=== PATIENT | female | born 1970 | race Caucasian/White ===

== ENCOUNTER 2018-12-24 19:59 | Emergency (ER) | payer OTHER ==
[2018-12-24] MEDS ORDERED: LORazepam 2 MG/ML SDV IVPUSH STA (20:00)
[2018-12-24] MEDS ORDERED: Sodium Chloride 0.9% 10 ML Syringe FLUSH PRN (20:10)
[2018-12-24] MEDS ORDERED: LORazepam 2 MG/ML SDV ONE (20:24)
[2018-12-24 20:50] LABS: CHLORIDE,CL 105 mmol/L (98-107); SODIUM,NA 143 mmol/L (136-145)
[2018-12-24] MEDS ORDERED: traMADol 50 MG Tab PO ONE (20:50)
[2018-12-24 20:51] LABS: ANION GAP 14.6 mmol/L (10-20)
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
== END 2018-12-24 22:09 | disposition home or self-care (01) ==
LOC: VM.ED 19:59
DX: S16.1XXA Strain of muscle, fascia and tendon at neck level, initial encounter (principal); S39.012A Strain of muscle, fascia and tendon of lower back, initial encounter; R07.81 Pleurodynia; V49.49XA Driver injured in collision with other motor vehicles in traffic accident, initial encounter
CPT/HCPCS: 36415; 71045; 72020; 80053; 80305; 85025; 85610; 96374; 99285; G0480

== ENCOUNTER 2019-10-15 03:43 | Emergency (ER) | payer MEDICAID ==
--- NOTE | 2019-10-15 04:17 | EDM.PDOC ---
ED HPI GENERAL MEDICAL PROBLEM - General Chief Complaint: Chest Pain Stated Complaint: Chest Pain Time Seen by Provider: 10/15/19 03:50 Source of Information: Reports: Patient History Limitations: Reports: No Limitations - History of Present Illness INITIAL COMMENTS - FREE TEXT/NARRATIVE: Patient presents to ER with complaints of left anterior/axilla chest pain. Admits to pain starting approximately 4-5 hours ago. Feels short of breath. No nausea or diaphoresis. Pain does not radiate. No cardiac history. Does have neuropathy in legs due to history of diabetes. Had gastric bypass and loss a lot of weight so is not treated for diabetes at this time. History of restless leg. Admits to feeling anxious, "has been worked up since Wednesday". Relates family history of cardiac, parents both from cardiac issues. Onset: Today, Gradual Duration: Hour(s):, Constant Location: Reports: Chest Quality: Reports: Ache, Sharp Severity: Moderate Associated Symptoms: Reports: Chest Pain, Shortness of Breath. Denies: Cough, Fever/Chills, Loss of Appetite, Nausea/Vomiting, Syncope, Weakness Treatments B[employer]K [employer]IVER: Reports: Acetaminophen Chest Pain Score (Numeric/FACES): 8 - Related Data Allergies Allergy/AdvReac Type Severity Reaction Status Date / Time ketorolac [From Toradol] Allergy Intermediate Rash Verified 10/15/19 04:24 aspirin Allergy Other Verified 10/15/19 04:24 scopolamine Allergy Rash Verified 10/15/19 04:24 Home Meds: Home Meds Sertraline [Zoloft] 200 mg PO DAILY 10/15/19 [History] buPROPion HCl [Wellbutrin Xl] 150 mg PO DAILY 10/15/19 [History] cloNIDine [Catapres] 0.1 mg PO BEDTIME 10/15/19 [History] Past Medical History Cardiovascular History: Reports: None Neurological History: Reports: Neuropathy, Diabetic Endocrine/Metabolic History: Reports: Diabetes, Type II - Past Surgical History GI Surgical History: Reports: Bariatric Procedure Social & Family History - Tobacco Use Smoking Status *Q: Current Every Day Smoker - Recreational Drug Use Recreational Drug Type: Reports: Methamphetamine ED ROS GENERAL - Review of Systems Review Of Systems: See Below Constitutional: Denies: Fever, Chills, Malaise, Weakness HEENT: Reports: No Symptoms Respiratory: Reports: Shortness of Breath Cardiovascular: Reports: Chest Pain. Denies: Edema, Lightheadedness Endocrine: Denies: Fatigue GI/Abdominal: Denies: Abdominal Pain, Constipation, Diarrhea, Nausea, Vomiting : Reports: No Symptoms Musculoskeletal: Reports: Leg Pain Skin: Reports: No Symptoms Neurological: Reports: Other (restless legs) Psychiatric: Reports: Anxiety ED EXAM, GENERAL - Physical Exam Exam: See Below Exam Limited By: No Limitations General Appearance: Alert, WD/WN, Anxious Ears: Normal External Exam, Normal TMs Nose: Normal Inspection, Normal Mucosa, No Blood Throat/Mouth: Normal Inspection, Normal Oropharynx Head: Normocephalic Neck: Normal Inspection, Supple, Non-Tender Respiratory/Chest: No Respiratory Distress, Lungs Clear, Normal Breath Sounds Cardiovascular: Regular Rate, Rhythm GI/Abdominal: Normal Bowel Sounds, Soft, Non-Tender Extremities: Normal Inspection, No Pedal Edema Neurological: Alert, Oriented Psychiatric: Anxious Skin Exam: Warm, Dry Course - Vital Signs Last Recorded V/S: Last Vital Signs Temp 96.2 F L 10/15/19 04:40 Pulse 81 10/15/19 05:58 Resp 10 L 10/15/19 05:58 BP 109/67 10/15/19 05:58 Pulse Ox 97 10/15/19 05:58 - Orders/Labs/Meds Orders: Active Orders 24 hr Category Date Time Status EKG 12 Lead [EKG Documentation Completion] [RC] STAT Care 10/15/19 06:56 Active Labs: Laboratory Tests 10/15/19 10/15/19 10/15/19 Range/Units 04:29 04:33 04:33 WBC 6.5 (4.0-10.0) x10^3/uL RBC 4.26 (4.00-5.50) x10^6/uL Hgb 12.1 (12.0-16.0) g/dL Hct 37.2 (33.0-47.0) % MCV 87.3 (78.0-93.0) fL MCH 28.4 (26.0-32.0) pg MCHC 32.5 (32.0-36.0) g/dL RDW Coeff of [place]ivid[place] 12.4 (10.0-15.0) % Plt Count 284 (130-400) x10^3/uL Neut % (Auto) 51.0 (50.0-80.0) % Lymph % (Auto) 36.3 (25.0-50.0) % [place] % (Auto) 9.7 (2.0-11.0) % Eos % (Auto) 2.8 (0.0-4.0) % Baso % (Auto) 0.2 (0.2-1.2) % APTT (24.0-36.0) SEC Sodium 144 (136-145) mmol/L Potassium 4.0 (3.5-5.1) mmol/L Chloride 107 (98-107) mmol/L Carbon Dioxide 30 (21-32) mmol/L Anion Gap 11.0 (10-20) mmol/L BUN 28 H (7-18) mg/dL Creatinine 0.7 (0.55-1.02) mg/dL Est Cr Clr Drug Dosing TNP Estimated GFR (MDRD) > 60 Glucose 45 L (74-106) mg/dL Calcium 8.3 L (8.5-10.1) mg/dL Corrected Calcium 8.94 (8.5-10.1) mg/dL Total Bilirubin 0.4 (0.2-1.0) mg/dL AST 26 (15-37) U/L ALT 30 (14-59) U/L Alkaline Phosphatase 172 H (46-116) U/L Lactate Dehydrogenase 243 H (81-234) U/L Creatine Kinase 305 H* (26-192) U/L Troponin I 1.477 H* (<=0.056) ng/mL Total Protein 6.9 (6.4-8.2) g/dL Albumin 3.2 L (3.4-5.0) g/dL Globulin 3.7 Albumin/Globulin Ratio 0.86 Urine Opiates Screen Negative (NEGATIVE) Ur Buprenorphine Scrn Negative (NEGATIVE) Ur Oxycodone Screen Negative (NEGATIVE) Ur EDDP (Meth Metab) Negative (NEGATIVE) Urine Methadone Screen Negative (NEGATIVE) Ur Barbiturates Screen Negative (NEGATIVE) Ur Tricyclics Screen Negative (NEGATIVE) Ur Phencyclidine Scrn Negative (NEGATIVE) Ur Amphetamine Screen Positive H (NEGATIVE) U Methamphetamines Scrn Positive H (NEGATIVE) Urine MDMA Screen Negative (NEGATIVE) U Benzodiazepines Scrn Negative (NEGATIVE) U Cocaine Metab Screen Negative (NEGATIVE) U Marijuana (THC) Screen Negative (NEGATIVE) 10/15/19 Range/Units 04:33 WBC (4.0-10.0) x10^3/uL RBC (4.00-5.50) x10^6/uL Hgb (12.0-16.0) g/dL Hct (33.0-47.0) % MCV (78.0-93.0) fL MCH (26.0-32.0) pg MCHC (32.0-36.0) g/dL RDW Coeff of [place] (10.0-15.0) % Plt Count (130-400) x10^3/uL Neut % (Auto) (50.0-80.0) % Lymph % (Auto) (25.0-50.0) % [place] % (Auto) (2.0-11.0) % Eos % (Auto) (0.0-4.0) % Baso % (Auto) (0.2-1.2) % APTT 23.4 L (24.0-36.0) SEC Sodium (136-145) mmol/L Potassium (3.5-5.1) mmol/L Chloride (98-107) mmol/L Carbon Dioxide (21-32) mmol/L Anion Gap (10-20) mmol/L BUN (7-18) mg/dL Creatinine (0.55-1.02) mg/dL Est Cr Clr Drug Dosing Estimated GFR (MDRD) Glucose (74-106) mg/dL Calcium (8.5-10.1) mg/dL Corrected Calcium (8.5-10.1) mg/dL Total Bilirubin (0.2-1.0) mg/dL AST (15-37) U/L ALT (14-59) U/L Alkaline Phosphatase (46-116) U/L Lactate Dehydrogenase (81-234) U/L Creatine Kinase (26-192) U/L Troponin I (<=0.056) ng/mL Total Protein (6.4-8.2) g/dL Albumin (3.4-5.0) g/dL Globulin Albumin/Globulin Ratio Urine Opiates Screen (NEGATIVE) Ur Buprenorphine Scrn (NEGATIVE) Ur Oxycodone Screen (NEGATIVE) Ur EDDP (Meth Metab) (NEGATIVE) Urine Methadone Screen (NEGATIVE) Ur Barbiturates Screen (NEGATIVE) Ur Tricyclics Screen (NEGATIVE) Ur Phencyclidine Scrn (NEGATIVE) Ur Amphetamine Screen (NEGATIVE) U Methamphetamines Scrn (NEGATIVE) Urine MDMA Screen (NEGATIVE) U Benzodiazepines Scrn (NEGATIVE) U Cocaine Metab Screen (NEGATIVE) U Marijuana (THC) Screen (NEGATIVE) Meds: Medications Discontinued Medications Generic Name Dose Route Start Last Admin Trade Name Freq PRN Reason Stop Dose Admin Aspirin 324 mg 10/15/19 05:34 10/15/19 05:35 Aspirin PO 10/15/19 05:35 324 mg ONETIME ONE Administration Fentanyl 25 mcg 10/15/19 05:56 10/15/19 06:06 Sublimaze IVPUSH 25 mcg Q2H PRN Administration Pain Heparin Sodium (Porcine) 4,000 units 10/15/19 05:43 10/15/19 06:44 Heparin Sodium IVPUSH 10/15/19 05:44 4,000 units .BOLUS ONE Administration Heparin Sodium/Sodium Chloride 25,000 units in 500 mls @ 16 mls/hr 10/15/19 05 :45 10/15/19 06:31 Heparin 25,000 Units In 1/2 Ns 500 Ml IV 800 units/hr TITRATE BETH 16 mls/hr Administration Protocol 800 UNITS/HR Nitroglycerin 0.4 mg 10/15/19 05:34 Nitrostat SL Q5M PRN Chest Pain - Re-Assessments/Exams Free Text/Narrative Re-Assessment/Exam: 10/15/19 05:00 Patient resting more comfortably than on arrival. States "is doing good". Awaiting labs. 0530-Lab results received. Has elevated troponin I at 1.477, CK 305, ALT 172, LDH 243. Discussed with patient. Contacted [facility] and spoke with Dr. Hayes in ER, report given. Agreed to accept the patient in transfer. Patient informed 10/15/19 05:54 Received call back from [facility]. Recommend proceeding with Heparin drip. Did call [id number] per patient request to notify them of her transfer. 10/15/19 06:18 Fentanyl given for pain. EMS here. Departure - Departure Time of Disposition: 05:37 Disposition: DC/Tfer to Acute Hospital 02 Reason for Transfer *Q: Other (further testing required) Condition: Poor, Undetermined Clinical Impression: Acute myocardial infarction Referrals: Orville Rice NP [Primary Care Provider] - Forms: ED Department Discharge, Interfacility Transfer EMTALA Sepsis Event Note - Focused Exam Vital Signs: Vital Signs Temp Pulse Resp BP Pulse Ox 10/15/19 05:58 81 10 L 109/67 97 10/15/19 05:53 80 13 104/63 98 10/15/19 05:45 94 12 131/71 97 10/15/19 05:42 94 15 109/57 L 98 10/15/19 04:40 96.2 F L 94 14 131/87 98 Date Exam was Performed: 10/15/19 Time Exam was Performed: 13:15 - My Orders Last 24 Hours: My Active Orders 10/15/19 06:56 EKG 12 Lead [EKG Documentation Completion] [RC] STAT - Assessment/Plan Last 24 Hours: My Active Orders 10/15/19 06:56 EKG 12 Lead [EKG Documentation Completion] [RC] STAT
[2019-10-15 04:50] LABS: BARBITURATE SCREEN,URINE NEGATIVE (NEGATIVE); BENZODIAZEPINES SCREEN,URINE NEGATIVE (NEGATIVE); EDDP,URINE SCREEN NEGATIVE (NEGATIVE); METHAMPHETAMINE SCREEN, URINE POSITIVE (NEGATIVE); TCA SCREEN,URINE NEGATIVE (NEGATIVE); THC SCREEN,URINE 50 NG/ML NEGATIVE (NEGATIVE)
[2019-10-15 05:20] LABS: CHLORIDE,CL 107 mmol/L (98-107); SODIUM,NA 144 mmol/L (136-145)
[2019-10-15] MEDS ORDERED: Nitroglycerin 0.4 MG Tab.SL SL PRN (05:34)
[2019-10-15] MEDS: Aspirin 81 MG Tab.Chew PO ONE (05:35)
[2019-10-15] MEDS: fentaNYL 100 MCG/2 ML SDV IVPUSH PRN (06:06)
[2019-10-15] MEDS: Heparin Sodium/0.45% NaCl 25,000 UNITS/500 ML BAG IV SCH (06:31)
[2019-10-15] MEDS: Heparin Sodium 5,000 Units/ML Vial IVPUSH ONE (06:44)
--- NOTE | 2019-10-15 09:09 | CR ---
[id number] RAD/RAD Chest PA And Lateral EXAM: FRONTAL AND LATERAL CHEST INDICATION: CHEST PAIN COMPARISON: December 24, 2018. DISCUSSION: The heart and lungs are normal in appearance. IMPRESSION: 1. Negative exam. Raul Maldonado MD 10/15/19 0908 Thank you for allowing us to participate in the care of your patient.
== END 2019-10-15 06:38 | disposition short-term general hospital (02) ==
LOC: VM.ED 03:43
DX: I21.9 Acute myocardial infarction, unspecified (principal); E11.40 Type 2 diabetes mellitus with diabetic neuropathy, unspecified; F17.200 Nicotine dependence, unspecified, uncomplicated; Z88.8 Allergy status to other drugs, medicaments and biological substances; Z79.899 Other long term (current) drug therapy
CPT/HCPCS: 36415; 71046; 80053; 80305-QW; 82550; 83615; 84484; 85025; 85730; 96374; 96375; 96376; 99285-25; A9270-GY; J1644; J3010

== ENCOUNTER 2019-10-18 10:35 | Emergency (ER) | payer MEDICAID ==
--- NOTE | 2019-10-18 11:14 | EDM.PDOC ---
ED HPI GENERAL MEDICAL PROBLEM - General Chief Complaint: Chest Pain Stated Complaint: ER Time Seen by Provider: 10/18/19 10:40 Source of Information: Reports: Patient, EMS History Limitations: Reports: No Limitations - History of Present Illness INITIAL COMMENTS - FREE TEXT/NARRATIVE: Patient with complaints of chest pain midsternal radiating to her left shoulder and into her back states it started about 4 AM this morning with intermittent episodes lasting anywhere from 15 to 20 minutes but she is able to get the pain resolved went back to sleep when the pain woke her up a 10 out of 10 this morning about an hour and a half ago. Patient called EMS and was transported here to the ER states that her pain was a 10 out of 10 she had some aspirin and nitro which helped bring it down to a 7 She denies any shortness of breath nausea or vomiting or diaphoresis Spoke with Dr. Saucedo at 1106 states sent her back to the back to him no need to give any extra medicine just ship. Onset: Today, Sudden Duration: Hour(s): Quality: Reports: Pressure, Stabbing, Throbbing Severity: Severe Improves with: Reports: Medication Associated Symptoms: Reports: No Other Symptoms Treatments COURT DEPUTY: Reports: Aspirin, EKG, IV/IO Left Chest Pain Score (Numeric/FACES): 7 - Related Data Allergies Allergy/AdvReac Type Severity Reaction Status Date / Time ketorolac [From Toradol] Allergy Intermediate Rash Verified 10/18/19 10:57 aspirin Allergy Other Verified 10/18/19 10:57 scopolamine Allergy Rash Verified 10/18/19 10:57 Home Meds: Home Meds Sertraline [Zoloft] 200 mg PO DAILY 10/15/19 [History] buPROPion HCl [Wellbutrin Xl] 150 mg PO DAILY 10/15/19 [History] cloNIDine [Catapres] 0.1 mg PO BEDTIME 10/15/19 [History] Past Medical History Cardiovascular History: Reports: Stents Other Cardiovascular History: Coronary atherosclerosis Respiratory History: Reports: Other (See Below) Other Respiratory History: Former smoker Gastrointestinal History: Reports: Chronic Diarrhea, Other (See Below) Other Gastrointestinal History: Pelvic pain Genitourinary History: Reports: Urinary Incontinence, Other (See Below) Other Genitourinary History: Cystocele - midline 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 Broken pain medication agreement. Maladaptive health behaviors affecting medical condition. Methamphetamin dependence Endocrine/Metabolic History: Reports: Diabetes, Type II - Past Surgical History Cardiovascular Surgical History: Reports: Coronary Artery Stent GI Surgical History: Reports: Bariatric Procedure Social & Family History - Tobacco Use Smoking Status *Q: Current Status Unknown - Recreational Drug Use Recreational Drug Use: Yes Drug Use in Last 12 Months: Yes Recreational Drug Type: Reports: Methamphetamine Recreational Drug Last Use: 6 days ago ED ROS GENERAL - Review of Systems Review Of Systems: See Below Constitutional: Reports: No Symptoms HEENT: Reports: No Symptoms Respiratory: Reports: No Symptoms Cardiovascular: Reports: Chest Pain. Denies: Blood Pressure Problem, Claudication, Dyspnea on Exertion, Lightheadedness, Palpitations Endocrine: Reports: No Symptoms GI/Abdominal: Reports: No Symptoms : Reports: No Symptoms Musculoskeletal: Reports: No Symptoms Skin: Reports: No Symptoms Neurological: Reports: No Symptoms Psychiatric: Reports: No Symptoms Hematologic/Lymphatic: Reports: No Symptoms Immunologic: Reports: No Symptoms ED EXAM, GENERAL - Physical Exam Exam: See Below Exam Limited By: No Limitations General Appearance: Alert, WD/WN, No Apparent Distress Throat/Mouth: Normal Inspection, Normal Lips, Normal Teeth, Normal Gums, Normal Oropharynx, Normal Voice, No Airway Compromise Head: Atraumatic, Normocephalic Neck: Normal Inspection, Supple, Non-Tender, Full Range of Motion Respiratory/Chest: No Respiratory Distress, Lungs Clear, Normal Breath Sounds, No Accessory Muscle Use, Chest Non-Tender Cardiovascular: Normal Peripheral Pulses, Regular Rate, Rhythm, No Edema, No Gallop, No JVD, No Murmur, No Rub GI/Abdominal: Normal Bowel Sounds, Soft, Non-Tender, No Organomegaly, No Distention Extremities: Normal Inspection, Normal Range of Motion, Non-Tender, No Pedal Edema, Normal Capillary Refill Neurological: Alert, Oriented, CN II-XII Intact, Normal Cognition Psychiatric: Normal Affect, Normal Mood Skin Exam: Warm, Intact, Normal Color, No Rash Course - Vital Signs Text/Narrative:: EKG shows normal sinus rhythm patient has inverted T waves in lead III spoke with a inspector floor in regard with this he states he will review the EKG from yesterday No labs to be drawn secondary to patient being sent in troponin likely positive from procedure yesterday Half-inch Nitropaste applied to the patient Patient is to be sent through ER Last Recorded V/S: Last Vital Signs Temp 37.0 C 10/18/19 11:30 Pulse 88 10/18/19 11:30 Resp 16 10/18/19 11:30 BP 128/86 10/18/19 11:30 Pulse Ox 100 10/18/19 11:30 - Orders/Labs/Meds Meds: Medications Discontinued Medications Generic Name Dose Route Start Last Admin Trade Name Freq PRN Reason Stop Dose Admin Nitroglycerin 1 gm 10/18/19 11:22 10/18/19 11:25 Nitro-Bid 2% TOP 10/18/19 11:23 1 gm ONETIME ONE Administration Departure - Departure Time of Disposition: 11:20 Disposition: DC/Tfer to Acute Hospital 02 Reason for Transfer *Q: Other (Higher level of care) Condition: Good Clinical Impression: Chest pain Referrals: Orville Rice [employer] [facility] [Primary Care Provider] - Forms: ED Department Discharge, Interfacility Transfer [facility] Sepsis Event Note - Evaluation Sepsis Screening Result: No Definite Risk - Focused Exam Vital Signs: Vital Signs Temp Pulse Resp BP Pulse Ox 10/18/19 11:30 37.0 C 88 16 128/86 100 10/18/19 10:35 36.9 C 97 18 144/88 H 99 Date Exam was Performed: 10/18/19 Time Exam was Performed: 14:38 - Problem List & Annotations (1) Chest pain SNOMED Code(s): 07762637 Code(s): R07.9 - CHEST PAIN, UNSPECIFIED Status: Acute
[2019-10-18] MEDS ORDERED: Nitroglycerin 2% Oint 1 GM UD Packet TOP ONE (11:22)
== END 2019-10-18 11:49 | disposition short-term general hospital (02) ==
LOC: VM.ED 10:35
DX: R07.9 Chest pain, unspecified (principal); F32.9 Major depressive disorder, single episode, unspecified; F43.10 Post-traumatic stress disorder, unspecified; I25.10 Atherosclerotic heart disease of native coronary artery without angina pectoris; E11.40 Type 2 diabetes mellitus with diabetic neuropathy, unspecified; Z88.6 Allergy status to analgesic agent; Z88.8 Allergy status to other drugs, medicaments and biological substances; Z79.899 Other long term (current) drug therapy; Z95.5 Presence of coronary angioplasty implant and graft; Z87.891 Personal history of nicotine dependence
CPT/HCPCS: 99285; A9270

== ENCOUNTER 2019-11-06 15:49 | Emergency (ER) | payer MEDICAID ==
[2019-11-06] MEDS ORDERED: Heparin Sodium 5,000 Units/ML Vial ONE (15:55)
[2019-11-06] MEDS ORDERED: Clopidogrel 75 MG Tab ONE (15:55)
[2019-11-06] MEDS ORDERED: Morphine 4 MG/ML Syringe ONE (15:55)
[2019-11-06] MEDS ORDERED: Metoprolol Tartrate 25 MG Tab ONE (15:55)
--- NOTE | 2019-11-06 16:27 | EDM.PDOC ---
ED HPI GENERAL MEDICAL PROBLEM - General Chief Complaint: Chest Pain Time Seen by Provider: 11/06/19 15:55 Source of Information: Reports: EMS, RN History Limitations: Reports: Other (severe pain) - History of Present Illness INITIAL COMMENTS - FREE TEXT/NARRATIVE: Patient arrives by EMS ambulance with crushing chest pain. She is writhing on the cart. She repeats, "help me! I'm dying! If you help me I will never do it again!". She admits to using meth this morning. She reportedly had PR 2019 and had a stent in the circumflex. She returned 2 days later and was evaluated and symptoms were not reproducible. She has not taken any of the prescribed meds since her PR. Onset: Today, Sudden Onset Date: 11/06/19 Onset Time: 15:00 Location: Reports: Chest Quality: Reports: Other (she does not answer most questions) Severity: Severe Associated Symptoms: Reports: Shortness of Breath - Related Data Allergies Allergy/AdvReac Type Severity Reaction Status Date / Time ketorolac [From Toradol] Allergy Intermediate Rash Verified 10/18/19 10:57 aspirin Allergy Other Verified 10/18/19 10:57 scopolamine Allergy Rash Verified 10/18/19 10:57 Home Meds: Home Meds Sertraline [Zoloft] 200 mg PO DAILY 10/15/19 [History] buPROPion HCl [Wellbutrin Xl] 150 mg PO DAILY 10/15/19 [History] cloNIDine [Catapres] 0.1 mg PO BEDTIME 10/15/19 [History] Past Medical History Cardiovascular History: Reports: CAD, Hypertension, PR, Stents Other Cardiovascular History: Coronary atherosclerosis Respiratory History: Reports: Other (See Below) Other Respiratory History: Former smoker Gastrointestinal History: Reports: Chronic Diarrhea, Other (See Below) Other Gastrointestinal History: Pelvic pain Genitourinary History: Reports: Urinary Incontinence, Other (See Below) Other Genitourinary History: Cystocele - midline 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 Broken pain medication agreement. Maladaptive health behaviors affecting medical condition. Methamphetamin dependence Endocrine/Metabolic History: Reports: Diabetes, Type II, Obesity/BMI 30+ - Past Surgical History Cardiovascular Surgical History: Reports: Coronary Artery Stent GI Surgical History: Reports: Bariatric Procedure Female Surgical History: Reports: Hysterectomy, Tubal Ligation Social & Family History - Tobacco Use Smoking Status *Q: Former Smoker - Alcohol Use Alcohol Use History: Yes - Recreational Drug Use Recreational Drug Use: Yes Drug Use in Last 12 Months: Yes Recreational Drug Type: Reports: Methamphetamine (Admitted used this am (2019)) ED ROS GENERAL - Review of Systems Review Of Systems: Unable To Obtain Reason Not Obtained: Patient writhing in pain, growning, does not answer many question Respiratory: Reports: Shortness of Breath Cardiovascular: Reports: Chest Pain ED EXAM, GENERAL - Physical Exam Exam: See Below Exam Limited By: Physical Impairment General Appearance: Alert, Anxious, Severe Distress Respiratory/Chest: No Respiratory Distress, Lungs Clear Cardiovascular: Regular Rate, Rhythm, No Edema, Tachycardia Neurological: Alert, Other (She did not answer any questions) Psychiatric: Anxious Skin Exam: Pallor EKG INTERPRETATION EKG Date: 11/06/19 Time: 15:37 Rhythm: NSR ST-T: Elevated (Elevated 2,3 avf; depression V2, 1 aVL) Course - Vital Signs Text/Narrative:: EMS came to ER as they were unable to print the EKG showing STEMI Pt reported she developed CP with SOB at 1500; admits to using meth this am. She has not taken any medications s/p PR with stent on 10-15-2019 She arrived at [facility] at 1550. 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 Mcfarland She was given meds per STEMI PROTOCOL She was given aspirin per EMS prior to arrival - 325 mg chewable po. We administered: Plavix 600 mg. Heparin bolus 4000 iu. Morphine 4 mg IV Metoprolol 25 mg po Ambulance left per STEMI protocol at 1602. Dr. Mcfarland called back shortly after and accepted care. - Orders/Labs/Meds Orders: Active Orders 24 hr Category Date Time Status COMPREHENSIVE METABOLIC PN,CMP [CHEM] Stat Lab 11/06/19 16:04 Received CREATINE KINASE,CK [CHEM] Stat Lab 11/06/19 16:04 Received INR,PT,PROTHROMBIN TIME [COAG] Stat Lab 11/06/19 16:04 Received PTT,PARTIAL THROMBOPLSTIN TIME [COAG] Stat Lab 11/06/19 16:04 Received Labs: Laboratory Tests 11/06/19 Range/Units 16:04 WBC 8.8 (4.0-10.0) x10^3/uL RBC 4.29 (4.00-5.50) x10^6/uL Hgb 12.2 (12.0-16.0) g/dL Hct 37.2 (33.0-47.0) % MCV 86.7 (78.0-93.0) fL MCH 28.4 (26.0-32.0) pg MCHC 32.8 (32.0-36.0) g/dL RDW Coeff of Natividad 12.8 (10.0-15.0) % Plt Count 268 (130-400) x10^3/uL Neut % (Auto) 65.2 (50.0-80.0) % Lymph % (Auto) 26.6 (25.0-50.0) % Benzie % (Auto) 6.8 (2.0-11.0) % Eos % (Auto) 1.2 (0.0-4.0) % Baso % (Auto) 0.2 (0.2-1.2) % Departure - Departure Time of Disposition: 16:02 (per [facility] ambulance) Disposition: DC/Tfer to Acute Hospital 02 Reason for Transfer *Q: Primary PCI Indicated Condition: Serious Clinical Impression: Chest pain due to coronary artery disease Referrals: PCP,Unknown [Ordering Only Provider] - Forms: ED Department Discharge, Interfacility Transfer [facility] Critical Care Note - Critical Care Note Total Time (mins): 17 (Critical care time for evaluation and treatment prior to transfer to facility with cardiology services ) ED Communication - Discussed Case With (1) Discussed Case With (1): Admitting Provider - Conversation Summary Admitting Provider Agreed to Patient's Admission: Yes Outpatient Provider Agreed to Follow-up on this Patient: No Bleach Liquor Maker Accepted Inpatient Consultation: Yes - Problem List Review Problem List Initiated/Reviewed/Updated: Yes - My Orders Last 24 Hours: My Active Orders 11/06/19 16:04 COMPREHENSIVE METABOLIC PN,CMP [CHEM] Stat CREATINE KINASE,CK [CHEM] Stat INR,PT,PROTHROMBIN TIME [COAG] Stat PTT,PARTIAL THROMBOPLSTIN TIME [COAG] Stat - Assessment/Plan Last 24 Hours: My Active Orders 11/06/19 16:04 COMPREHENSIVE METABOLIC PN,CMP [CHEM] Stat CREATINE KINASE,CK [CHEM] Stat INR,PT,PROTHROMBIN TIME [COAG] Stat PTT,PARTIAL THROMBOPLSTIN TIME [COAG] Stat Assessment:: STEMI DRUG USAGE: METHAMPHETAMINE NONCOMPLIANCE with medication and lifestyle Plan: TRANSFER TO [facility] PER STEMI PROTOCOL
[2019-11-06 16:31] LABS: PTT,PARTIAL THROMBOPLSTIN TIME 23.2 SEC (24.0-36.0)
[2019-11-06 16:50] LABS: CHLORIDE,CL 105 mmol/L (98-107); SODIUM,NA 142 mmol/L (136-145)
[2019-11-06 16:51] LABS: ANION GAP 14.6 mmol/L (10-20)
== END 2019-11-06 16:05 | disposition short-term general hospital (02) ==
LOC: VM.ED 15:49
DX: I25.10 Atherosclerotic heart disease of native coronary artery without angina pectoris (principal); I10 Essential (primary) hypertension; E11.9 Type 2 diabetes mellitus without complications; E66.9 Obesity, unspecified; F32.9 Major depressive disorder, single episode, unspecified; I25.2 Old myocardial infarction; Z95.5 Presence of coronary angioplasty implant and graft; Z79.899 Other long term (current) drug therapy; Z98.84 Bariatric surgery status; Z98.51 Tubal ligation status; Z90.710 Acquired absence of both cervix and uterus; Z88.6 Allergy status to analgesic agent; Z88.8 Allergy status to other drugs, medicaments and biological substances; Z87.891 Personal history of nicotine dependence
CPT/HCPCS: 80053; 82550; 84484; 85025; 85610; 85730; 99285; A9270-GY; J1644; J2270

== ENCOUNTER 2019-11-08 22:22 | Emergency (ER) | payer MEDICAID ==
[2019-11-08] MEDS ORDERED: Sodium Chloride 0.9% 1,000 ML IV ONE (22:45)
[2019-11-08] MEDS ORDERED: Nitroglycerin 0.4 MG Tab.SL SL ONE ×3 (22:45→23:20)
--- NOTE | 2019-11-08 22:46 | EDM.PDOC ---
ED HPI GENERAL MEDICAL PROBLEM - General Chief Complaint: Chest Pain Stated Complaint: PAIN IN L ARM Time Seen by Provider: 11/08/19 22:34 Source of Information: Reports: Patient - History of Present Illness INITIAL COMMENTS - FREE TEXT/NARRATIVE: Brianna is a 49 y/o female who comes o the ER with pain in her left arm that radiates to her chest and into her back. She was just discharged today from [facility] in [place] after having presenting on 11/06/2019 here with chest pain and being sent to [place]. Patient reports that she had the left arm pain today when she left [place], but it has gotten much worse. Chest Pain Score (Numeric/FACES): 8 - Related Data Allergies Allergy/AdvReac Type Severity Reaction Status Date / Time ketorolac [From Toradol] Allergy Intermediate Rash Verified 11/08/19 22:29 aspirin Allergy Other Verified 11/08/19 22:29 scopolamine Allergy Rash Verified 11/08/19 22:29 Home Meds: Home Meds Sertraline [Zoloft] 100 mg PO DAILY 10/15/19 [History] buPROPion HCl [Wellbutrin Xl] 150 mg PO DAILY 10/15/19 [History] Aspirin [Halfprin] 81 mg PO DAILY 11/08/19 [History] Clopidogrel [Plavix] 75 mg PO DAILY 11/08/19 [History] Famotidine 20 mg PO DAILY 11/08/19 [History] Metoprolol Succinate [Toprol XL] 25 mg PO DAILY 11/08/19 [History] atorvaSTATin [Lipitor] 40 mg PO DAILY 11/08/19 [History] Past Medical History Cardiovascular History: Reports: CAD, Hypertension, NH, Stents Other Cardiovascular History: Coronary atherosclerosis Respiratory History: Reports: Other (See Below) Other Respiratory History: Former smoker Gastrointestinal History: Reports: Chronic Diarrhea, Other (See Below) Other Gastrointestinal History: Pelvic pain Genitourinary History: Reports: Urinary Incontinence, Other (See Below) Other Genitourinary History: Cystocele - midline STORE KEEPER History: Reports: Other (See Below) Other STORE KEEPER History: Uterine leiomyoma Musculoskeletal History: Reports: Back Pain, Chronic Neurological History: Reports: Neuropathy, Diabetic Psychiatric History: Reports: Addiction, Depression, PTSD, Other (See Below) Other Psychiatric History: History of alcohol abuse. Broken pain medication agreement. Maladaptive health behaviors affecting medical condition. Methamphetamin dependence Endocrine/Metabolic History: Reports: Diabetes, Type II, Obesity/BMI 30+ - Past Surgical History Cardiovascular Surgical History: Reports: Coronary Artery Stent GI Surgical History: Reports: Bariatric Procedure Female Surgical History: Reports: Hysterectomy, Tubal Ligation Social & Family History - Tobacco Use Smoking Status *Q: Current Status Unknown Review of Systems - Review of Systems Review Of Systems: See Below Constitutional: Reports: No Symptoms Eyes: Reports: No Symptoms Ears: Reports: No Symptoms Nose: Reports: No Symptoms Mouth/Throat: Reports: No Symptoms Respiratory: Reports: No Symptoms Cardiovascular: Reports: Chest Pain GI/Abdominal: Reports: No Symptoms Genitourinary: Reports: No Symptoms Musculoskeletal: Reports: Arm Pain (left) Skin: Reports: No Symptoms Neurological: Reports: No Symptoms Psychiatric: Reports: No Symptoms ED EXAM, GENERAL - Physical Exam Exam: See Below General Appearance: Alert, WD/WN, No Apparent Distress Ears: Hearing Grossly Normal EKG INTERPRETATION EKG Date: 11/08/19 Time: 22:23 Rhythm: NSR Rate (Beats/Min): 95 [place]: Normal P-Wave: Present QRS: Normal ST-T: Elevated EKG Interpretation Comments: Note ST elevation in Lead III and aVF, stable compared to EKG obtained this AM at [facility]. Course - Vital Signs Text/Narrative:: The patient was seen by the ONCOLOGY PATIENT NAVIGATOR on arrival. Labs and EKG were ordered. She reported 8/10 chest pain on arrival. EKG noted ST elevation in Lead III and aVF. Patient given Ntg 0.4 SL and pain improved to 6/10. VSS. Patient had been released at 2 pm today from [facility] and refuses to return there for care. 2300 Pain continued and a 3rd Nitro was given. [facility] contacted. Case discussed with Dr Valentino, cardiology solutions operator, and patient accepted for transfer to [place]. ONCOLOGY PATIENT NAVIGATOR called [facility] and clarified procedure with them. Patient had a 90% lesion in the mid circ vessel that had balloon angioplasty, but unable to place a stent. This information conveyed to Dr Valentino. Patient was start on Heparin and Nitro gtts for transport. Troponin noted to be 18.0 here in [place]. Noted Trop in the 50s earlier today at [facility]. Patient left the ER with EMS. Last Recorded V/S: Last Vital Signs Temp 37.5 C 11/08/19 22:30 Pulse 87 11/08/19 22:59 Resp 12 11/08/19 22:30 BP 103/54 L 11/08/19 22:59 Pulse Ox 98 11/08/19 22:59 - Orders/Labs/Meds Orders: Active Orders 24 hr Category Date Time Status EKG Documentation Completion [RC] STAT Care 11/08/19 22:40 Active CBC W/O DIFF,HEMOGRAM [HEME] Q3D Lab 11/09/19 07:00 Ordered CBC W/O DIFF,HEMOGRAM [HEME] Q3D Lab 11/12/19 07:00 Ordered CBC W/O DIFF,HEMOGRAM [HEME] Q3D Lab 11/15/19 07:00 Ordered CBC W/O DIFF,HEMOGRAM [HEME] Q3D Lab 11/18/19 07:00 Ordered CBC W/O DIFF,HEMOGRAM [HEME] Q3D Lab 11/21/19 07:00 Ordered CBC W/O DIFF,HEMOGRAM [HEME] Q3D Lab 11/24/19 07:00 Ordered CBC W/O DIFF,HEMOGRAM [HEME] Q3D Lab 11/27/19 07:00 Ordered Heparin Sodium/0.45% NaCl [Heparin 25,000 Units in 1/2 Med 11/08/19 23:45 Active NS 500 ML] 25,000 units in 500 ml IV TITRATE Nitroglycerin/D5W [Nitroglycerin 25 MG/D5W 250 ML] Med 11/08/19 23:45 Active 25 mg in 250 ml IV TITRATE Medication Orders Heparin Sodium/Sodium Chloride (Heparin 25,000 Units In 1/2 Ns 500 Ml) 25,000 units in 500 mls @ 20 mls/hr IV TITRATE BETH; Protocol Nitroglycerin/Dextrose (Nitroglycerin 25 Mg/D5w 250 Ml) 25 mg in 250 mls @ 6 mls/hr IV TITRATE BETH; Protocol Labs: Laboratory Tests 11/08/19 11/08/19 11/08/19 Range/Units 22:55 22:55 22:55 WBC 7.8 (4.0-10.0) x10^3/uL RBC 3.70 L (4.00-5.50) x10^6/uL Hgb 10.6 L D (12.0-16.0) g/dL Hct 32.6 L (33.0-47.0) % MCV 88.1 (78.0-93.0) fL MCH 28.6 (26.0-32.0) pg MCHC 32.5 (32.0-36.0) g/dL RDW Coeff of [place]ivid[place] 12.7 (10.0-15.0) % Plt Count 246 (130-400) x10^3/uL Neut % (Auto) 58.4 (50.0-80.0) % Lymph % (Auto) 28.1 (25.0-50.0) % [place] % (Auto) 11.5 H (2.0-11.0) % Eos % (Auto) 2.0 (0.0-4.0) % Baso % (Auto) 0.0 L (0.2-1.2) % PT 9.7 L (10.0-12.8) SEC INR 0.9 L (2.0-3.5) APTT 22.1 L (24.0-36.0) SEC Sodium 139 (136-145) mmol/L Potassium 4.5 (3.5-5.1) mmol/L Chloride 103 (98-107) mmol/L Carbon Dioxide 29 (21-32) mmol/L Anion Gap 11.5 (10-20) mmol/L BUN 16 (7-18) mg/dL Creatinine 0.8 (0.55-1.02) mg/dL Est Cr Clr Drug Dosing 69.59 mL/min Estimated GFR (MDRD) > 60 Glucose 92 (74-106) mg/dL Calcium 8.3 L (8.5-10.1) mg/dL Corrected Calcium 9.34 (8.5-10.1) mg/dL Total Bilirubin 0.4 (0.2-1.0) mg/dL AST 118 H (15-37) U/L ALT 139 H (14-59) U/L Alkaline Phosphatase 183 H (46-116) U/L Troponin I 18.800 H* (<=0.056) ng/mL Total Protein 6.1 L (6.4-8.2) g/dL Albumin 2.7 L (3.4-5.0) g/dL Globulin 3.4 Albumin/Globulin Ratio 0.79 Urine Opiates Screen (NEGATIVE) Ur Buprenorphine Scrn (NEGATIVE) Ur Oxycodone Screen (NEGATIVE) Ur EDDP (Meth Metab) (NEGATIVE) Urine Methadone Screen (NEGATIVE) Ur Barbituates Screen (NEGATIVE) Ur Tricyclics Screen (NEGATIVE) Ur Phencyclidine Scrn (NEGATIVE) Ur Amphetamines Screen (NEGATIVE) U Methamphetamines Scrn (NEGATIVE) Urine MDMA Screen (NEGATIVE) U Benzodiazepines Scrn (NEGATIVE) Urine Cocaine Screen (NEGATIVE) U Marijuana (THC) Screen (NEGATIVE) Ethyl Alcohol < 3 (0-3) mg/dL 11/08/19 Range/Units 23:27 WBC (4.0-10.0) x10^3/uL RBC (4.00-5.50) x10^6/uL Hgb (12.0-16.0) g/dL Hct (33.0-47.0) % MCV (78.0-93.0) fL MCH (26.0-32.0) pg MCHC (32.0-36.0) g/dL RDW Coeff of [place] (10.0-15.0) % Plt Count (130-400) x10^3/uL Neut % (Auto) (50.0-80.0) % Lymph % (Auto) (25.0-50.0) % [place] % (Auto) (2.0-11.0) % Eos % (Auto) (0.0-4.0) % Baso % (Auto) (0.2-1.2) % PT (10.0-12.8) SEC INR (2.0-3.5) APTT (24.0-36.0) SEC Sodium (136-145) mmol/L Potassium (3.5-5.1) mmol/L Chloride (98-107) mmol/L Carbon Dioxide (21-32) mmol/L Anion Gap (10-20) mmol/L BUN (7-18) mg/dL Creatinine (0.55-1.02) mg/dL Est Cr Clr Drug Dosing mL/min Estimated GFR (MDRD) Glucose (74-106) mg/dL Calcium (8.5-10.1) mg/dL Corrected Calcium (8.5-10.1) mg/dL Total Bilirubin (0.2-1.0) mg/dL AST (15-37) U/L ALT (14-59) U/L Alkaline Phosphatase (46-116) U/L Troponin I (<=0.056) ng/mL Total Protein (6.4-8.2) g/dL Albumin (3.4-5.0) g/dL Globulin Albumin/Globulin Ratio Urine Opiates Screen Negative (NEGATIVE) Ur Buprenorphine Scrn Negative (NEGATIVE) Ur Oxycodone Screen Positive H (NEGATIVE) Ur EDDP (Meth Metab) Negative (NEGATIVE) Urine Methadone Screen Negative (NEGATIVE) Ur Barbituates Screen Negative (NEGATIVE) Ur Tricyclics Screen Negative (NEGATIVE) Ur Phencyclidine Scrn Negative (NEGATIVE) Ur Amphetamines Screen Negative (NEGATIVE) U Methamphetamines Scrn Negative (NEGATIVE) Urine MDMA Screen Negative (NEGATIVE) U Benzodiazepines Scrn Negative (NEGATIVE) Urine Cocaine Screen Negative (NEGATIVE) U Marijuana (THC) Screen Negative (NEGATIVE) Ethyl Alcohol (0-3) mg/dL Meds: Medications Generic Name Dose Route Start Last Admin Trade Name Freq PRN Reason Stop Dose Admin Heparin Sodium/Sodium Chloride 25,000 units in 500 mls @ 20 mls/hr 11/08/19 23 :45 Heparin 25,000 Units In 1/2 Ns 500 Ml IV TITRATE BETH Protocol 1,000 UNITS/HR Nitroglycerin/Dextrose 25 mg in 250 mls @ 6 mls/hr 11/08/19 23:45 Nitroglycerin 25 Mg/D5w 250 Ml IV TITRATE BETH Protocol 10 MCG/MIN Discontinued Medications Generic Name Dose Route Start Last Admin Trade Name Freq PRN Reason Stop Dose Admin Heparin Sodium (Porcine) 4,000 units 11/08/19 23:37 Heparin Sodium IVPUSH 11/08/19 23:38 ONETIME ONE Sodium Chloride 1,000 mls @ 999 mls/hr 11/08/19 22:45 11/08/19 23:06 Normal Saline IV 11/08/19 23:45 999 mls/hr ONETIME ONE Administration Nitroglycerin 0.4 mg 11/08/19 22:45 11/08/19 22:48 Nitrostat SL 11/08/19 22:46 0.4 mg ONETIME ONE Administration Nitroglycerin 0.4 mg 11/08/19 23:19 Nitrostat SL 11/08/19 23:20 ONETIME ONE Nitroglycerin 0.4 mg 11/08/19 23:20 Nitrostat SL 11/08/19 23:21 ONETIME ONE Ondansetron HCl 4 mg 11/08/19 23:07 11/08/19 23:13 Zofran IVPUSH 11/08/19 23:08 4 mg ONETIME ONE Administration Departure - Departure Time of Disposition: 23:50 Disposition: DC/Tfer to [id number] Condition: Good Clinical Impression: Chest pain, STEMI (ST elevation myocardial infarction), Elevated liver enzymes - Discharge Information Referrals: Orville Rice, YOU[employer] SERVICES LIBRARIAN [Primary Care Provider] - Forms: ED Department Discharge, Interfacility Transfer EMTALA Additional Instructions: -Transfer to [facility] to Dr Valentino with Nitro and Heparin infusing -Transport via [facility] Sepsis Event Note - Evaluation Sepsis Screening Result: No Definite Risk - Focused Exam Vital Signs: Vital Signs Temp Pulse Resp BP BP Pulse Ox 11/08/19 22:59 87 103/54 L 98 11/08/19 22:48 101/69 11/08/19 22:30 37.5 C 91 12 130/65 98 Date Exam was Performed: 11/08/19 Time Exam was Performed: 23:54 - My Orders Last 24 Hours: My Active Orders 11/08/19 22:40 EKG Documentation Completion [RC] STAT 11/08/19 23:45 Heparin Sodium/0.45% NaCl [Heparin 25,000 Units in 1/2 NS 500 ML] 25,000 units in 500 ml IV TITRATE Nitroglycerin/D5W [Nitroglycerin 25 MG/D5W 250 ML] 25 mg in 250 ml IV TITRATE 11/09/19 07:00 CBC W/O DIFF,HEMOGRAM [HEME] Q3D 11/12/19 07:00 CBC W/O DIFF,HEMOGRAM [HEME] Q3D 11/15/19 07:00 CBC W/O DIFF,HEMOGRAM [HEME] Q3D 11/18/19 07:00 CBC W/O DIFF,HEMOGRAM [HEME] Q3D 11/21/19 07:00 CBC W/O DIFF,HEMOGRAM [HEME] Q3D 11/24/19 07:00 CBC W/O DIFF,HEMOGRAM [HEME] Q3D 11/27/19 07:00 CBC W/O DIFF,HEMOGRAM [HEME] Q3D - Assessment/Plan Last 24 Hours: My Active Orders 11/08/19 22:40 EKG Documentation Completion [RC] STAT 11/08/19 23:45 Heparin Sodium/0.45% NaCl [Heparin 25,000 Units in 1/2 NS 500 ML] 25,000 units in 500 ml IV TITRATE Nitroglycerin/D5W [Nitroglycerin 25 MG/D5W 250 ML] 25 mg in 250 ml IV TITRATE 11/09/19 07:00 CBC W/O DIFF,HEMOGRAM [HEME] Q3D 11/12/19 07:00 CBC W/O DIFF,HEMOGRAM [HEME] Q3D 11/15/19 07:00 CBC W/O DIFF,HEMOGRAM [HEME] Q3D 11/18/19 07:00 CBC W/O DIFF,HEMOGRAM [HEME] Q3D 11/21/19 07:00 CBC W/O DIFF,HEMOGRAM [HEME] Q3D 11/24/19 07:00 CBC W/O DIFF,HEMOGRAM [HEME] Q3D 11/27/19 07:00 CBC W/O DIFF,HEMOGRAM [HEME] Q3D
[2019-11-08] MEDS ORDERED: Ondansetron 4 MG/2 ML SDV IVPUSH ONE (23:07)
[2019-11-08 23:22] LABS: PTT,PARTIAL THROMBOPLSTIN TIME 22.1 SEC (24.0-36.0)
[2019-11-08] MEDS ORDERED: Heparin Sodium 5,000 Units/ML Vial IVPUSH ONE (23:37)
[2019-11-08 23:39] LABS: ANION GAP 11.5 mmol/L (10-20); CHLORIDE,CL 103 mmol/L (98-107); SODIUM,NA 139 mmol/L (136-145)
[2019-11-08] MEDS ORDERED: Heparin Sodium/0.45% NaCl 25,000 UNITS/500 ML BAG IV SCH (23:45)
[2019-11-08] MEDS ORDERED: Nitroglycerin/D5W 25 MG/250 ML BOTTLE IV SCH (23:45)
[2019-11-08 23:50] LABS: BUPRENORPHINE,URINE NEGATIVE (NEGATIVE); MARIJUANA,URINE NEGATIVE (NEGATIVE); METHYLENEDIOXYMETHAMP,UR NEGATIVE (NEGATIVE); PHENCYCLIDINE,URINE NEGATIVE (NEGATIVE)
== END 2019-11-09 00:16 ==
LOC: VM.ED 22:22
DX: I21.3 ST elevation (STEMI) myocardial infarction of unspecified site (principal); R74.8 Abnormal levels of other serum enzymes; I25.10 Atherosclerotic heart disease of native coronary artery without angina pectoris; E11.40 Type 2 diabetes mellitus with diabetic neuropathy, unspecified; E66.9 Obesity, unspecified; F32.9 Major depressive disorder, single episode, unspecified; I25.2 Old myocardial infarction; Z88.6 Allergy status to analgesic agent; Z88.8 Allergy status to other drugs, medicaments and biological substances; Z79.82 Long term (current) use of aspirin; Z79.02 Long term (current) use of antithrombotics/antiplatelets; Z79.899 Other long term (current) drug therapy; Z87.891 Personal history of nicotine dependence
CPT/HCPCS: 80053; 80305; 80307; 84484; 85025; 85610; 85730; 93005; 96361; 96365; 96375; 99285; J1644; J2405; J3490; J7030